=== PATIENT | male | born 1965 | race Caucasian/White ===

== ENCOUNTER 2023-08-31 10:56 | Emergency (ER) | payer BC ==
[2023-08-31 11:24] VITALS: RESP 16
[2023-08-31 13:05] LABS: Basophils # (A) 0.1 k/uL (0-0.2); Basophils % (A) 1 %; Eosinophils # (A) 0.3 k/uL (0-0.7); Eosinophils % (A) 4 %; HGB 15.9 gm/dL (13.0-17.5); Lymphocytes # (A) 1.6 k/uL (1.0-4.8); Lymphocytes % (A) 20 %; MCH 30.4 pg (25.0-35.0); MCHC 33.8 g/dL (31.0-37.0); MCV 90.1 fL (80.0-100.0); Monocytes # (A) 0.5 k/uL (0-1.0); Monocytes % (A) 6 %; Neutrophils # (A) 5.2 k/uL (1.3-7.7); Neutrophils % (A) 67 %; Platelet Count 233 k/uL (150-450); RBC 5.22 m/uL (4.30-5.90); RDW 13.1 % (11.5-15.5); WBC 7.7 k/uL (3.8-10.6)
[2023-08-31 13:22] LABS: ALT 40 U/L (4-49); AST 37 U/L (17-59); African American GFR (CKD) >90 (>60 ml/min/1.73 sqM); Alkaline Phosphatase 63 U/L (38-126); Anion Gap 7 mmol/L; Blood Urea Nitrogen 15 mg/dL (9-20); Calcium 8.9 mg/dL (8.4-10.2); Carbon Dioxide 26 mmol/L (22-30); Chloride 106 mmol/L (98-107); Glucose 98 mg/dL (74-99); Non-African American GFR(CKD) >90 (>60 ml/min/1.73 sqM); Potassium 4.4 mmol/L (3.5-5.1); Sodium 139 mmol/L (137-145); Total Bilirubin 0.9 mg/dL (0.2-1.3); Total Protein 6.7 g/dL (6.3-8.2)
[2023-08-31 13:23] LABS: Amorphous Sediment,Urine Rare /hpf; Appearance,Urine Cloudy (Clear); Bacteria,Urine Occasional /hpf; Bilirubin,Urine Negative (Negative); Blood,Urine Negative (Negative); Color,Urine Yellow; Glucose,Urine (UA) Negative (Negative); Ketones,Urine Negative (Negative); Leukocyte Esterase,Urine Negative (Negative); Mucus,Urine Many /hpf; Nitrite,Urine Negative (Negative); Protein,Urine Negative (Negative); RBC,Urine 2 /hpf (0-5); Specific Gravity,Urine 1.026 (1.001-1.035); Urobilinogen,Urine <2.0 mg/dL (<2.0); WBC,Urine 3 /hpf (0-5)
--- NOTE | 2023-08-31 14:35 | ED ---
Fall HPI - General Chief Complaint: Fall Stated Complaint: Back pain Time Seen by Provider: 08/31/23 11:47 Source: patient, RN notes reviewed Mode of arrival: wheelchair Limitations: no limitations - History of Present Illness Initial Comments: 57-year-old male presents emergency from chief complaint of fall. Patient states he is an extension ladder possibly 5-6 feet up when he fell states he landed on the ground. Patient complained of left hip discomfort, low back pain, abdominal discomfort no chest, head or neck pain. He states his fall happened yesterday is on no blood thinners. - Related Data Allergies Allergy/AdvReac Type Severity Reaction Status Date / Time Penicillins AdvReac Unknown Verified 08/31/23 11:09 Review of Systems ROS Statement: Those systems with pertinent positive or pertinent negative responses have been documented in the HPI. ROS Other: All systems not noted in ROS Statement are negative. Past Medical History Past Medical History: No Reported History History of Any Multi-Drug Resistant Organisms: None Reported Past Surgical History: No Surgical Hx Reported Past Psychological History: No Psychological Hx Reported Smoking Status: Never smoker Past Alcohol Use History: None Reported Past Drug Use History: None Reported General Exam Limitations: no limitations General appearance: alert, in no apparent distress Head exam: Present: atraumatic, normocephalic, normal inspection Eye exam: Present: normal appearance, PERRL, EOMI. Absent: scleral icterus, conjunctival injection, periorbital swelling ENT exam: Present: normal exam, normal oropharynx, mucous membranes moist Neck exam: Present: normal inspection, full ROM. Absent: tenderness, meningismus, lymphadenopathy Respiratory exam: Present: normal lung sounds bilaterally. Absent: respiratory distress, wheezes, rales, rhonchi, stridor, chest wall tenderness Cardiovascular Exam: Present: regular rate, normal rhythm, normal heart sounds. Absent: systolic murmur, diastolic murmur, rubs, gallop, clicks GI/Abdominal exam: Present: soft, tenderness, normal bowel sounds. Absent: distended, guarding, rebound, rigid Extremities exam: Present: other (Mild left hip pain, able to ambulate, full range of motion) Back exam: Present: full ROM, tenderness, paraspinal tenderness, vertebral tenderness (Lumbar) Neurological exam: Present: alert, reflexes normal. Absent: motor sensory deficit Skin exam: Present: warm, dry, intact, normal color. Absent: rash Course Vital Signs 08/31/23 08/31/23 11:09 15:35 Temperature 98.4 F 98.5 F Pulse Rate 79 75 Respiratory 16 16 Rate Blood Pressure 147/96 148/96 O2 Sat by Pulse 96 97 Oximetry Medical Decision Making - Medical Decision Making Was pt. sent in by a medical professional or institution (PALAK Murry, PHYSICIAN SUPPORT COORDINATOR, urgent care, hospital, or fpc...) When possible be specific @ -No Did you speak to anyone other than the patient for history (EMS, parent, family, police, friend...)? What history was obtained from this source @ -No Did you review nursing and triage notes (agree or disagree)? Why? @ -I reviewed and agree with nursing and triage notes Were old charts reviewed (outside hosp., previous admission, EMS record, old EKG, old radiological studies, urgent care reports/EKG's, fpc records)? Report findings @ -No old charts were reviewed Differential Diagnosis (chest pain, altered mental status, abdominal pain women, abdominal pain men, vaginal bleeding, weakness, fever, dyspnea, syncope, headache, dizziness, GI bleed, back pain, seizure, CVA, palpatations, mental health, musculoskeletal)? @ -Abdominal pain, lumbar fracture, hip fracture, fall EKG interpreted by me (3pts min.). @ -None X-rays interpreted by me (1pt min.). @ -None done CT interpreted by me (1pt min.). @ -CT abdomen and pelvis shows no acute fracture there is no gallstones no anterior abdominal bleeding, organ laceration noted U/S interpreted by me (1pt. min.). @ -None done What testing was considered but not performed or refused? (CT, X-rays, U/S, labs)? Why? @ -None What meds were considered but not given or refused? Why? @ -None Did you discuss the management of the patient with other professionals (professionals i.e. PALAK Murry, PHYSICIAN SUPPORT COORDINATOR, lab, RT, psych nurse, social sciences lecturer, revenue officer, teacher, protection officer, spring encaser)? Give summary @ -No Was smoking cessation discussed for >3mins.? @ -No Was critical care preformed (if so, how long)? @ -No Were there social determinants of health that impacted care today? How? (Homelessness, low income, unemployed, alcoholism, drug addiction, transportation, low edu. Level, literacy, decrease access to med. care, long-term, rehab)? @ -No Was there de-escalation of care discussed even if they declined (Discuss DNR or withdrawal of care, Hospice)? DNR status @ -No What co-morbidities impacted this encounter? (DM, HTN, Smoking, COPD, CAD, Cancer, CVA, ARF, Chemo, Hep., AIDS, mental health diagnosis, sleep apnea, morbid obesity)? @ -None Was patient admitted / discharged? Hospital course, mention meds given and route, prescriptions, significant lab abnormalities, going to OR and other pertinent info. @ -[Discharged patient's images negative patient feels improved at this time patient discharged in stable condition return parameters discussed. Undiagnosed new problem with uncertain prognosis? @ -No Drug Therapy requiring intensive monitoring for toxicity (Heparin, Nitro, Insulin, Cardizem)? @ -No Were any procedures done? @ -No Diagnosis/symptom? @ -Fall, hip contusion, back contusion Acute, or Chronic, or Acute on Chronic? @ -Acute Uncomplicated (without systemic symptoms) or Complicated (systemic symptoms)? @ -Uncomplicated Side effects of treatment? @ -No Exacerbation, Progression, or Severe Exacerbation? @ -No Poses a threat to life or bodily function? How? (Chest pain, USA, NH, pneumonia, PE, COPD, DKA, ARF, appy, cholecystitis, CVA, Diverticulitis, Homicidal, Suicidal, threat to staff... and all critical care pts) @ -No - Lab Data Result diagrams: 08/31/23 12:54 08/31/23 12:54 Lab Results 08/31/23 08/31/23 08/31/23 Range/Units 12:54 12:54 12:54 WBC 7.7 (3.8-10.6) k/uL RBC 5.22 (4.30-5.90) m/uL Hgb 15.9 (13.0-17.5) gm/dL Hct 47.0 (39.0-53.0) % MCV 90.1 (80.0-100.0) fL MCH 30.4 (25.0-35.0) pg MCHC 33.8 (31.0-37.0) g/dL RDW 13.1 (11.5-15.5) % Plt Count 233 (150-450) k/uL MPV 7.0 Neutrophils % 67 % Lymphocytes % 20 % Monocytes % 6 % Eosinophils % 4 % Basophils % 1 % Neutrophils # 5.2 (1.3-7.7) k/uL Lymphocytes # 1.6 (1.0-4.8) k/uL Monocytes # 0.5 (0-1.0) k/uL Eosinophils # 0.3 (0-0.7) k/uL Basophils # 0.1 (0-0.2) k/uL Sodium 139 (137-145) mmol/L Potassium 4.4 (3.5-5.1) mmol/L Chloride 106 (98-107) mmol/L Carbon Dioxide 26 (22-30) mmol/L Anion Gap 7 mmol/L BUN 15 (9-20) mg/dL Creatinine 0.69 (0.66-1.25) mg/dL Est GFR (CKD-EPI)AfAm >90 (>60 ml/min/1.73 sqM) Est GFR (CKD-EPI)NonAf >90 (>60 ml/min/1.73 sqM) Glucose 98 (74-99) mg/dL Calcium 8.9 (8.4-10.2) mg/dL Total Bilirubin 0.9 (0.2-1.3) mg/dL AST 37 (17-59) U/L ALT 40 (4-49) U/L Alkaline Phosphatase 63 (38-126) U/L Total Protein 6.7 (6.3-8.2) g/dL Albumin 4.0 (3.5-5.0) g/dL Urine Color Yellow Urine Appearance Cloudy (Clear) Urine pH 7.0 (5.0-8.0) Ur Specific [place] 1.026 (1.001-1.035) Urine Protein Negative (Negative) Urine Glucose (UA) Negative (Negative) Urine Ketones Negative (Negative) Urine Blood Negative (Negative) Urine Nitrite Negative (Negative) Urine Bilirubin Negative (Negative) Urine Urobilinogen <2.0 (<2.0) mg/dL Ur Leukocyte Esterase Negative (Negative) Urine RBC 2 (0-5) /hpf Urine WBC 3 (0-5) /hpf Amorphous Sediment Rare H (None) /hpf Urine Bacteria Occasional H (None) /hpf Urine Mucus Many H (None) /hpf Disposition Clinical Impression: Fall, Contusion of left hip, Lumbar back pain Disposition: HOME SELF-CARE Condition: Stable Instructions (If sedation given, give patient instructions): Back Pain (ED) Additional Instructions: Please return to the ER for any worsening symptoms or any other concerns Is patient prescribed a controlled substance at d/c from ED?: No Referrals: None,Stated [Primary Care Provider] - 1-2 days Time of Disposition: 15:49
--- NOTE | 2023-08-31 14:52 | CT ---
EXAMINATION TYPE: CT abdomen pelvis w con DATE OF EXAM: 08/31/2023 COMPARISON: NONE HISTORY: 57-year-old male with pain after Fall from ladder TECHNIQUE: Contiguous axial scanning of the abdomen and pelvis following administration of 100 ml Iso princess 300 IV contrast. Delayed images through the kidneys and coronal/sagittal reconstructions perform ed. CT DLP: 2768.7 mGycm Automated exposure control for dose reduction was used. FINDINGS: Heart normal size without pericardial effusion. Lung bases clear without pleural effusion. Liver mildly enlarged at 18.6 cm with low attenuation. No focal liver lesions seen. Portal venous sys tem is patent. No biliary ductal dilatation. Small 6 mm gallstone. No abnormal gallbladder distention. Adrenal glands, kidneys, spleen, and pancreas within normal limits. No dilated small bowel, free fluid, or free air. No mesenteric or retroperitoneal adenopathy. There is mild overall stool burden. Mild diverticulosis lower descending colon. Additional diverticul osis proximal to mid sigmoid colon. No pericolic inflammatory change. Bladder nondistended. Prostate gland enlargement 5.5 cm wide. Numerous pelvic phlebolith. No abnormal fluid collection in the pelvis or pelvic lymphadenopathy. Bones: There is left L5 hemisacralization with a degenerative assimilation joint. Degenerative bony a nkylosis right greater the left SI joints. There is moderate degenerative change in both hips. No pelvic or hip fracture is seen. No sacral frac ture identified. Extensive gauge throughout the visualized lower thoracic and upper to mid lumbar spine. Degenerative grade 1 retrolisthesis L2-L3 and L3-L4. Facet arthropathy especially towards the right i n the mid and lower lumbar spine. No vertebral compression collapse is seen. IMPRESSION: 1. NO ACUTE TRAUMATIC SEQUELA IDENTIFIED WITHIN THE CHEST, ABDOMEN, OR PELVIS. 2. MODERATE DEGENERATIVE CHANGE OF BOTH HIPS. DEGENERATIVE BONY ANKYLOSIS RIGHT GREATER THAN LEFT SI JOINTS. EXTENSIVE DISH THROUGHOUT THE LOWER THORACIC SPINE DOWN THROUGH THE UPPER LUMBAR SPINE. NO VE RTEBRAL COMPRESSION COLLAPSE OR OTHERWISE ANY ACUTE FRACTURE IS CLEARLY IDENTIFIED. 3. INCIDENTAL CHOLELITHIASIS AND LEFT-SIDED COLONIC DIVERTICULOSIS.
[2023-08-31 15:42] VITALS: BP 148/96; PULSE 75; TEMP 98.5
== END 2023-08-31 16:05 | disposition home or self-care (01) ==
LOC: EC 10:56
DX: S70.02XA Contusion of left hip, initial encounter (principal); M54.50 Low back pain, unspecified; Z88.0 Allergy status to penicillin; W11.XXXA Fall on and from ladder, initial encounter
CPT/HCPCS: 36415; 80053; 85025; 81001; 74177; 99284; Q9967

== ENCOUNTER 2024-12-12 16:21 | Emergency (ER) | payer OTHER, BC ==
--- NOTE | 2024-12-12 16:49 | ED ---
General Adult HPI - General Chief complaint: Back Pain/Injury Stated complaint: [facility] R side and back injury Time Seen by Provider: 12/12/24 16:25 Source: patient, RN notes reviewed, old records reviewed Mode of arrival: ambulatory Limitations: no limitations - History of Present Illness Initial comments: Is a 59-year-old male who presents to the emergency department stating he was at work stepping off a ladder while he was holding some the other hand he twisted and felt a pop in his right flank at the area of the last rib. Patient states it hurts to touch and hurts to twist currently. Patient denies any central back pain. Patient has any numbness or weakness. Patient denies any other symptoms at this time. - Related Data Previous Rx's Medication Instructions Recorded Cyclobenzaprine [Flexeril] 10 mg PO TID #20 tab 12/12/24 Ketorolac [Toradol] 10 mg PO Q8HR #15 tab 12/12/24 Allergies Allergy/AdvReac Type Severity Reaction Status Date / Time Penicillins AdvReac Unknown Verified 08/31/23 11:09 Review of Systems ROS Statement: Those systems with pertinent positive or pertinent negative responses have been documented in the HPI. ROS Other: All systems not noted in ROS Statement are negative. Past Medical History Past Medical History: No Reported History History of Any Multi-Drug Resistant Organisms: None Reported Past Surgical History: Orthopedic Surgery Past Psychological History: No Psychological Hx Reported Smoking Status: Never smoker Past Alcohol Use History: None Reported Past Drug Use History: None Reported General Exam - General Exam Comments Initial Comments: GENERAL Patient is well-developed and well-nourished. Patient is in mild distress. EYES Patient's pupils are equal and round. Extraocular motion is intact SKIN Unremarkable NEURO The patient is alert and oriented A&Ox3 PYSCH Patient has normal interpersonal interactions. MUSCULOSKELETAL Pressing on the right lateral distal rib cage is tender to palpation. Patient has no central back pain patient has no other symptoms Limitations: no limitations Course Vital Signs 12/12/24 16:24 Temperature 97.8 F Pulse Rate 86 Respiratory 16 Rate Blood Pressure 161/99 O2 Sat by Pulse 96 Oximetry Medical Decision Making - Medical Decision Making Was pt. sent in by a medical professional or institution (, PA, ACCESS SERVICES ASSISTANT, urgent care, hospital, or prison...) When possible be specific @ -No Did you speak to anyone other than the patient for history (EMS, parent, family, police, friend...)? What history was obtained from this source @ -No Did you review nursing and triage notes (agree or disagree)? Why? @ -I reviewed and agree with nursing and triage notes Were old charts reviewed (outside hosp., previous admission, EMS record, old EKG, old radiological studies, urgent care reports/EKG's, prison records)? Report findings @ -No old charts were reviewed Differential Diagnosis? @ -Differential Musculoskeletal Muscular strain, contusion, ligament sprain, fracture, arthritis, septic arthr itis, bursitis, cellulitis, muscle spasm, nerve compression, DVT, arterial occlusion, herpes zoster, electrolyte abnormality, tumor.... This is not meant to be in all inclusive list EKG interpreted by me (3pts min.). @ -As above X-rays interpreted by me (1pt min.). @ -X-ray shows no acute normality. CT interpreted by me (1pt min.). @ -None done U/S interpreted by me (1pt. min.). @ -None done What testing was considered but not performed or refused? (CT, X-rays, U/S, labs)? Why? @ -None What meds were considered but not given or refused? Why? @ -None Did you discuss the management of the patient with other professionals (professionals i.e. , PA, ACCESS SERVICES ASSISTANT, lab, RT, psych nurse, social media director, client service representative, teacher, public information officer, caser shoe [employer])? Give summary @ -No Was smoking cessation discussed for >3mins.? @ -No Was critical care preformed (if so, how long)? @ -No Were there social determinants of health that impacted care today? How? (Homelessness, low income, unemployed, alcoholism, drug addiction, transportation, low edu. Level, literacy, decrease access to med. care, fpc, rehab)? @ -No Was there de-escalation of care discussed even if they declined (Discuss DNR or withdrawal of care, Hospice)? DNR status @ -No What co-morbidities impacted this encounter? (DM, HTN, Smoking, COPD, CAD, Cancer, CVA, ARF, Chemo, Hep., AIDS, mental health diagnosis, sleep apnea, morbid obesity)? @ -None Was patient admitted / discharged? Hospital course, mention meds given and route, prescriptions, significant lab abnormalities, going to OR and other pertinent info. @ -Patient's pain is reproducible on the right lateral lower ribs. Patient had Toradol and Norflex and felt much better here. Undiagnosed new problem with uncertain prognosis? @ -No Drug Therapy requiring intensive monitoring for toxicity (Heparin, Nitro, Insulin, Cardizem)? @ -No Were any procedures done? @ -No Diagnosis/symptom? @ -Muscular strain Acute, or Chronic, or Acute on Chronic? @ -Acute Uncomplicated (without systemic symptoms) or Complicated (systemic symptoms)? @ -uncomplicated Side effects of treatment? @ -No Exacerbation, Progression, or Severe Exacerbation? @ -No Poses a threat to life or bodily function? How? (Chest pain, USA, ID, pneumonia, PE, COPD, DKA, ARF, appy, cholecystitis, CVA, Diverticulitis, Homicidal, Suicidal, threat to staff... and all critical care pts) @ -No Disposition Clinical Impression: Muscle strain Disposition: HOME SELF-CARE Instructions (If sedation given, give patient instructions): Muscle Strain (ED) Prescriptions: Cyclobenzaprine [Flexeril] 10 mg PO TID #20 tab Ketorolac [Toradol] 10 mg PO Q8HR #15 tab Is patient prescribed a controlled substance at d/c from ED?: No Referrals: None,Stated [Primary Care Provider] - 1-2 days Time of Disposition: 18:07
--- NOTE | 2024-12-12 16:56 | XR ---
EXAMINATION TYPE: XR chest 2V DATE OF EXAM: 12/12/2024 4:52 PM COMPARISON: Chest radiographs from 06/30/2012 TECHNIQUE: XR chest 2V Frontal and lateral views of the chest. CLINICAL INDICATION:Male, 59 years old with history of Chest Trauma; FINDINGS: Lungs/Pleura: There is no evidence of pleural effusion, focal consolidation, or pneumothorax. Pulmonary vascularity: Unremarkable. Heart/mediastinum: Cardiomediastinal silhouette is unremarkable. Musculoskeletal: No acute osseous pathology. Multilevel degenerative disc disease of the thoracic spi ne. IMPRESSION: No acute cardiopulmonary disease/process. [facility], , 12/12/2024 4:54 PM
[2024-12-12] MEDS: KETOROLAC 15 MG/ML 1 ML VIAL IM STA (16:59)
[2024-12-12] MEDS: ORPHENADRINE 30 MG/ML 2 ML VIAL IM STA (17:02)
[2024-12-12 18:28] VITALS: BP 146/91; PULSE 72; RESP 18; TEMP 97.9
== END 2024-12-12 18:30 | disposition home or self-care (01) ==
LOC: EC 16:21
DX: S39.012A Strain of muscle, fascia and tendon of lower back, initial encounter (principal); Z88.0 Allergy status to penicillin; X50.1XXA Overexertion from prolonged static or awkward postures, initial encounter; Y99.0 Civilian activity done for income or pay
CPT/HCPCS: 71046; 99283; 96372 ×2; J2360; J1885

== ENCOUNTER 2025-01-21 08:44 | Emergency (ER) | payer BC ==
--- NOTE | 2025-01-21 09:00 | ED ---
Upper Extremity HPI - General Chief Complaint: Extremity Injury, Upper Stated Complaint: Fall-R arm injury Time Seen by Provider: 01/21/25 08:56 Source: patient, RN notes reviewed Mode of arrival: ambulatory Limitations: no limitations - History of Present Illness Initial Comments: 59-year-old male presented the ER for evaluation of right elbow/wrist pain. Patient states about a week ago he accidentally tripped and fell landing on his right side, no head injury. He states pain was improving from the fall until yesterday when he was working lifting heavy materials and repetitive motions. He is returning most of his pain to his right elbow and wrist. He does state movement of his fingers radiates sharp throbbing pain to his elbow. Admits to a tingling sensation of 2nd and 3rd right digits. He did take ibuprofen last night to go to sleep but has not taken any medications today. He denies any neck or shoulder pain currently. No other complaints at this time - Related Data Previous Rx's Medication Instructions Recorded Cyclobenzaprine [Flexeril] 10 mg PO TID #20 tab 12/12/24 Ketorolac [Toradol] 10 mg PO Q8HR #15 tab 12/12/24 Allergies Allergy/AdvReac Type Severity Reaction Status Date / Time Penicillins AdvReac Unknown Verified 01/21/25 08:47 Review of Systems ROS Statement: Those systems with pertinent positive or pertinent negative responses have been documented in the HPI. ROS Other: All systems not noted in ROS Statement are negative. Past Medical History Past Medical History: No Reported History History of Any Multi-Drug Resistant Organisms: None Reported Past Surgical History: Orthopedic Surgery Past Psychological History: No Psychological Hx Reported Smoking Status: Never smoker Past Alcohol Use History: None Reported Past Drug Use History: None Reported General Exam Limitations: no limitations General appearance: alert, in no apparent distress Neck exam: Present: normal inspection. Absent: tenderness, meningismus, lymphadenopathy Respiratory exam: Present: normal lung sounds bilaterally. Absent: respiratory distress, wheezes, rales, rhonchi, stridor Cardiovascular Exam: Present: regular rate, normal rhythm, normal heart sounds. Absent: systolic murmur, diastolic murmur, rubs, gallop, clicks Extremities exam: Present: normal inspection, full ROM (pain with active supination/pronation and flexion/extension right elbow. ), tenderness (ulnar styloid right. medial and lateral right elbow), normal capillary refill (2+ right radial pulse), other (no right anatominal snuffbox tenderness) Neurological exam: Present: alert, oriented X3, CN II-XII intact Skin exam: Present: warm, dry, intact, normal color. Absent: rash Course Vital Signs 01/21/25 08:45 Temperature 98.0 F Pulse Rate 81 Respiratory 17 Rate Blood Pressure 164/95 O2 Sat by Pulse 97 Oximetry Procedures - Orthopedic Splinting/Casting Injury #1 Side: right Upper Extremity Injury Location: elbow Upper Extremity Immobilizer: posterior splint Medical Decision Making - Medical Decision Making Was pt. sent in by a medical professional or institution (, PA, TETRYL NITRATOR OPERATOR, urgent care, hospital, or senior care...) When possible be specific @ -No Did you speak to anyone other than the patient for history (EMS, parent, family, police, friend...)? What history was obtained from this source @ -No Did you review nursing and triage notes (agree or disagree)? Why? @ -I reviewed and agree with nursing and triage notes Were old charts reviewed (outside hosp., previous admission, EMS record, old EKG, old radiological studies, urgent care reports/EKG's, senior care records)? Report findings @ -No old charts were reviewed Differential Diagnosis (chest pain, altered mental status, abdominal pain women, abdominal pain men, vaginal bleeding, weakness, fever, dyspnea, syncope, headache, dizziness, GI bleed, back pain, seizure, CVA, palpatations, mental health, musculoskeletal)? @ -Differential Musculoskeletal: Muscular strain, contusion, ligament sprain, fracture, arthritis, septic arthritis, bursitis, cellulitis, muscle spasm, nerve compression, DVT, arterial occlusion, herpes zoster, electrolyte abnormality, tumor.... This is not meant to be in all inclusive list EKG interpreted by me (3pts min.). @ -[None done X-rays interpreted by me (1pt min.). @ -@Right elbow x-ray interpreted by me notable for radial head fracture. Right wrist x-ray interpreted me negative for acute fractures or dislocations. CT interpreted by me (1pt min.). @ -None done U/S interpreted by me (1pt. min.). @ -None done What testing was considered but not performed or refused? (CT, X-rays, U/S, labs)? Why? @ -None What meds were considered but not given or refused? Why? @ -None Did you discuss the management of the patient with other professionals (professionals i.e. , PA, TETRYL NITRATOR OPERATOR, lab, RT, psych nurse, school social worker, workers' compensation commissioner, teacher, retail loan officer, case mgr)? Give summary @ -No Was smoking cessation discussed for >3mins.? @ -No Was critical care preformed (if so, how long)? @ -No Were there social determinants of health that impacted care today? How? (Homelessness, low income, unemployed, alcoholism, drug addiction, transportation, low edu. Level, literacy, decrease access to med. care, alf, rehab)? @ -No Was there de-escalation of care discussed even if they declined (Discuss DNR or withdrawal of care, Hospice)? DNR status @ -No What co-morbidities impacted this encounter? (DM, HTN, Smoking, COPD, CAD, Cancer, CVA, ARF, Chemo, Hep., AIDS, mental health diagnosis, sleep apnea, morbid obesity)? @ -None Was patient admitted / discharged? Hospital course, mention meds given and route, prescriptions, significant lab abnormalities, going to OR and other pertinent info. @ -Discharge. 59-year-old male presented the ER for evaluation of right elbow/wrist pain. Vitals within acceptable limits. Patient is neurovascularly intact. Tenderness to palpation of medial and lateral right elbow. X-rays concerning of a radial head fracture for which patient was placed in a posterior splint in flexion position. Patient provided with shoulder sling. Patient given ibuprofen for pain control. Patient instructed to follow-up with orthopedics, referral given. I advised [id number] ibuprofen and Tylenol for pain control outpatient. Return parameters discussed. Patient discharged in stable condition. Patient verbally expressed understanding agree with care plan. Case discussed with ED attending, Keith Neil. Undiagnosed new problem with uncertain prognosis? @ -No Drug Therapy requiring intensive monitoring for toxicity (Heparin, Nitro, Insulin, Cardizem)? @ -No Were any procedures done? @ -Yes, splint Diagnosis/symptom? @ -Radial head fracture Acute, or Chronic, or Acute on Chronic? @ -Acute Uncomplicated (without systemic symptoms) or Complicated (systemic symptoms)? @ -Uncomplicated Side effects of treatment? @ -No Exacerbation, Progression, or Severe Exacerbation? @ -No Poses a threat to life or bodily function? How? (Chest pain, [place], MA, pneumonia, PE, COPD, DKA, ARF, appy, cholecystitis, CVA, Diverticulitis, Homicidal, Suicidal, threat to staff... and all critical care pts) @ -No - Radiology Data Radiology results: report reviewed, image reviewed Disposition Clinical Impression: Radial head fracture Disposition: HOME SELF-CARE Condition: Stable Instructions (If sedation given, give patient instructions): Elbow Fracture (ED) Additional Instructions: You may take [id number] ibuprofen and Tylenol for pain control. Follow-up with orthopedics. Return to the ER for any new or worsening concerns Is patient prescribed a controlled substance at d/c from ED?: No Referrals: None,Stated [Primary Care Provider] - 1-2 days Bang Sánchez MD [STAFF PHYSICIAN] - 1-2 days Time of Disposition: 09:53
[2025-01-21] MEDS: IBUPROFEN 800 MG TAB PO STA (09:02)
--- NOTE | 2025-01-21 09:27 | XR ---
EXAMINATION TYPE: XR wrist complete RT DATE OF EXAM: 01/21/2025 9:16 AM COMPARISON: None. CLINICAL INDICATION: Male, 59 years old with history of pain, pain, fall, continued pain 2 weeks TECHNIQUE: 4 view(s) obtained. FINDINGS: No acute fracture or dislocation evident. Joint spaces are preserved. Soft tissues are normal. Scapho id appears intact IMPRESSION: 1. No acute osseous abnormality right wrist. MRI can be performed as clinically indicated [facility], , 01/21/2025 9:25 AM
--- NOTE | 2025-01-21 09:29 | XR ---
EXAMINATION TYPE: XR elbow complete RT DATE OF EXAM: 01/21/2025 9:16 AM COMPARISON: None. CLINICAL INDICATION: Male, 59 years old with history of pain, pain TECHNIQUE: 3 view(s) obtained. FINDINGS: There appears to be elevation of the anterior and posterior fat pads. Radius aligns normally with the humerus. There appears to be a subtle nondisplaced fracture through the radial. No additional fract ures evident. IMPRESSION: 1. Subtle radial head fracture. 2. Elevation of the anterior and posterior fat pads [facility], , 01/21/2025 9:27 AM
[2025-01-21 10:08] VITALS: BP 151/98; PULSE 79; RESP 20; TEMP 98.1
== END 2025-01-21 10:09 | disposition home or self-care (01) ==
LOC: EC 08:44
DX: S52.121A Displaced fracture of head of right radius, initial encounter for closed fracture (principal); Z88.0 Allergy status to penicillin; W01.0XXA Fall on same level from slipping, tripping and stumbling without subsequent striking against object, initial encounter
CPT/HCPCS: 29105; 99283